=== PATIENT | male | born 1995 | race Caucasian/White ===

== ENCOUNTER 2018-11-11 19:22 | Emergency (ER) | payer SELFPAY ==
[~2018-11-11] VITALS: Ht 172.7 cm; Wt 70.3 kg
[~2018-11-11 19:22] MED LIST: Vibramycin100 MG PO
== END 2018-11-11 20:03 | disposition home or self-care (01) ==
LOC: ER 19:22
DX: L02.411 Cutaneous abscess of right axilla (principal); F17.210 Nicotine dependence, cigarettes, uncomplicated
CPT/HCPCS: 99282